=== PATIENT | female | born 1985 | race Two or more races ===

== ENCOUNTER 2016-12-27 07:52 | Inpatient (IN) | payer OTHER ==
--- NOTE | 2016-12-21 18:11 | GHP ---
[f rep st] PREOP HISTORY AND PHYSICAL PLANNED PROCEDURE: Attempt external cephalic version and, if failed, primary low transverse section for breech presentation. INDICATIONS: The patient is a 31-year-old, 3, para 1-0-1-1, who will be 37+ weeks' gestation. She has been monitored for intrauterine growth restriction, and the most recent estimated weight was 4th percentile, which was discovered on 12/17/2016. Baby was also noted to be in the breech presentation. Maternal Medicine has recommended that she deliver between 37 and 39 weeks' gestation. Because the baby is in the breech presentation, we have discussed attempting external cephalic version versus just proceeding with a primary low transverse section. Patient has been properly counseled on both options. She is considering proceeding with external cephalic version and will let us know day of surgery if we are just proceeding with section or attempting external cephalic version. Risk and benefits have been extensively reviewed with the patient. The patient has been properly consented. The patient transferred to [facility] at 30 weeks' gestation. She initially did care while in [facility]. MEDICAL HISTORY: History of hypothyroidism. MEDICATIONS: vitamins and DHA. SURGICAL HISTORY: None. ALLERGIES: No known drug allergies. SOCIAL HISTORY: Patient is . 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 FAMILY MEDICAL HISTORY: Noncontributory. BOOK REPAIRER HISTORY: Menarche age 14. The patient had been before conceiving, so she only had 1 period after she discontinued . She is a 3, para 1-0-1-1. In 2014, she had a spontaneous at 8 weeks. In 2016, she had a spontaneous vaginal delivery of a 5 pounds 7 ounces male at 38 weeks' gestation. She was induced for intrauterine growth restriction. She had a rapid labor. Current has been complicated with intrauterine growth restriction, which was diagnosed in the 2nd trimester with estimated weight at the 3rd percentile at 30 weeks. The patient denies any history of any abnormal Pap smears or sexually transmitted diseases. REVIEW OF SYSTEMS: A 10-point review of systems is negative. She states positive movement. No loss of fluid. No vaginal bleeding. She denies any headache or changes in vision. PHYSICAL EXAMINATION: VITAL SIGNS: Stable. GENERAL APPEARANCE: Alert and oriented x3. PSYCH: She has appropriate affect. MUSCULOSKELETAL: Grossly intact. NEURO: Grossly intact. NECK: Mobile and supple. HEART: Rate is regular, regular. LUNGS: Clear to auscultation bilaterally. ABDOMEN: Gravid , nondistended, nontender. EXTREMITIES: Reveal no calf tenderness or edema. PELVIC: Deferred for infant in the breech presentation. LABORATORY DATA: The patient's labs: Blood type A positive. Antibody screen negative. Rubella immune. GBS negative. HBsAg negative. HIV negative. Her 50 g glucose is 66. She had a negative Verifi. ASSESSMENT/PLAN: A 31-year-old, 3, para 1-0-1-1, who will be 37+ weeks ' gestation with intrauterine growth restriction baby in the breech presentation. She will decide between attempting an external cephalic version and then induction of labor if successful versus just proceeding with a primary low transverse section. Risks and benefits have been extensively reviewed with the patient. The patient has been properly consented. /[id number]/MODL MTDD
--- NOTE | 2016-12-21 18:11 | GHP ---
[f rep st] PREOP HISTORY AND PHYSICAL PLANNED PROCEDURE: Attempt external cephalic version and, if failed, primary low transverse section for breech presentation. INDICATIONS: The patient is a 31-year-old, 3, para 1-0-1-1, who will be 37+ weeks' gestation. She has been monitored for intrauterine growth restriction, and the most recent estimated weight was 4th percentile, which was discovered on 12/17/2016. Baby was also noted to be in the breech presentation. Maternal Medicine has recommended that she deliver between 37 and 39 weeks' gestation. Because the baby is in the breech presentation, we have discussed attempting external cephalic version versus just proceeding with a primary low transverse section. Patient has been properly counseled on both options. She is considering proceeding with external cephalic version and will let us know day of surgery if we are just proceeding with section or attempting external cephalic version. Risk and benefits have been extensively reviewed with the patient. The patient has been properly consented. The patient transferred to [facility] [place] at 30 weeks' gestation. She initially did care while in [facility]. MEDICAL HISTORY: History of hypothyroidism. MEDICATIONS: vitamins and DHA. SURGICAL HISTORY: None. ALLERGIES: No known drug allergies. SOCIAL HISTORY: Patient is . 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 FAMILY MEDICAL HISTORY: Noncontributory. PERMIT REVIEW ASSISTANT HISTORY: Menarche age 14. The patient had been before conceiving, so she only had 1 period after she discontinued . She is a 3, para 1-0-1-1. In 2014, she had a spontaneous at 8 weeks. In 2016, she had a spontaneous vaginal delivery of a 5 pounds 7 ounces male at 38 weeks' gestation. She was induced for intrauterine growth restriction. She had a rapid labor. Current has been complicated with intrauterine growth restriction, which was diagnosed in the 2nd trimester with estimated weight at the 3rd percentile at 30 weeks. The patient denies any history of any abnormal Pap smears or sexually transmitted diseases. REVIEW OF SYSTEMS: A 10-point review of systems is negative. She states positive movement. No loss of fluid. No vaginal bleeding. She denies any headache or changes in vision. PHYSICAL EXAMINATION: VITAL SIGNS: Stable. GENERAL APPEARANCE: Alert and oriented x3. PSYCH: She has appropriate affect. MUSCULOSKELETAL: Grossly intact. NEURO: Grossly intact. NECK: Mobile and supple. HEART: Rate is regular, regular. LUNGS: Clear to auscultation bilaterally. ABDOMEN: Gravid , nondistended, nontender. EXTREMITIES: Reveal no calf tenderness or edema. PELVIC: Deferred for infant in the breech presentation. LABORATORY DATA: The patient's labs: Blood type A positive. Antibody screen negative. Rubella immune. GBS negative. HBsAg negative. HIV negative. Her 50 g glucose is 66. She had a negative Verifi. ASSESSMENT/PLAN: A 31-year-old, 3, para 1-0-1-1, who will be 37+ weeks ' gestation with intrauterine growth restriction baby in the breech presentation. She will decide between attempting an external cephalic version and then induction of labor if successful versus just proceeding with a primary low transverse section. Risks and benefits have been extensively reviewed with the patient. The patient has been properly consented. /[id number]/MODL MTDD
[2016-12-27] MEDS ORDERED: CITRIC ACID/SODIUM CITRATE 30 ML UDCUP PO ONE (08:06)
[2016-12-27] MEDS ORDERED: ceFAZolin 2 GM/DEXTROSE 100 ML IV ONE (08:06)
[2016-12-27] MEDS ORDERED: LR 500 ML IV ONE (08:06)
[2016-12-27] MEDS ORDERED: LR 1,000 ML IV SCH (08:30)
[2016-12-27 08:44] LABS: PLATELET COUNT 233 10^3/uL (150-400)
[2016-12-27] MEDS ORDERED: OXYTOCIN 30 UNIT in LR 500 ML IV SCH (10:45)
--- NOTE | 2016-12-27 12:29 | OBPROG ---
Labor Progress Note Assessment/Plan: Assessment: at 37 4/7 weeks IUGR Plan: pitocin for induction of labor epidural then arom 12/27/16 12:28 Subjective/Intrapartum Course: 12/27/16 12:26 patient presented for primary section for breech presentation at 37 weeks for IUGR. us done to confirm presentation. baby noted to be vertex. status is reassuring. sve 3/70/-2. patient very excited. will start IOL. patient will eat breakfast and we will start pitocin. Objective: 12/27/16 08:36 Patient ABO/Rh A POSITIVE 12/27/16 08:36 - SVE Dilation (cm): 3 Effacement (%): 75 Station: -2 Membranes: Intact - Contraction Pattern Assessment Current Contraction Pattern: Irregular - FHR Assessment [place] FHR (bpm): 150 FHR Pattern Variability: Moderate FHR Category: 1 - AP Antepartum Course: 12/27/16 12:31 hx IUGR with G1. rapid labor with G1. initiated care with [facility]. transfer to care to [facility] at 30 weeks. efw was 15% at 26 weeks. US in clinic at 30 weeks was efw 3%. close surveillance for rest of . EFW at 36 weeks was 4% . [facility] recommended delivery 37- 39 weeks. baby was breech at 37 weeks. discussed ECV vs primary c section. declined ECV. baby found to be cephalic when arrived to L and D for c section so will start induction instead of c section Oxytocin Orders Assessment - Pre-Induction/Augmentation Assessment Gestational Age: 37 week(s) and 4 day(s) ICD10 Worksheet Patient Problems: Problems Problem Status Onset IUGR (intrauterine growth restriction) Acute
--- NOTE | 2016-12-27 12:29 | OBPROG ---
Labor Progress Note Assessment/Plan: Assessment: at 37 4/7 weeks IUGR Plan: pitocin for induction of labor epidural then arom 12/27/16 12:28 Subjective/Intrapartum Course: 12/27/16 12:26 patient presented for primary section for breech presentation at 37 weeks for IUGR. us done to confirm presentation. baby noted to be vertex. status is reassuring. sve 3/70/-2. patient very excited. will start IOL. patient will eat breakfast and we will start pitocin. Objective: 12/27/16 08:36 Patient ABO/Rh A POSITIVE 12/27/16 08:36 - SVE Dilation (cm): 3 Effacement (%): 75 Station: -2 Membranes: Intact - Contraction Pattern Assessment Current Contraction Pattern: Irregular - FHR Assessment [place] FHR (bpm): 150 FHR Pattern Variability: Moderate FHR Category: 1 - AP Antepartum Course: 12/27/16 12:31 hx IUGR with G1. rapid labor with G1. initiated care with [facility] [place] [place]. transfer to care to [facility] at 30 weeks. efw was 15% at 26 weeks. US in clinic at 30 weeks was efw 3%. close surveillance for rest of . EFW at 36 weeks was 4% . [facility] recommended delivery 37- 39 weeks. baby was breech at 37 weeks. discussed ECV vs primary c section. declined ECV. baby found to be cephalic when arrived to L and D for c section so will start induction instead of c section Oxytocin Orders Assessment - Pre-Induction/Augmentation Assessment Gestational Age: 37 week(s) and 4 day(s) ICD10 Worksheet Patient Problems: Problems Problem Status Onset IUGR (intrauterine growth restriction) Acute
--- NOTE | 2016-12-27 12:29 | OBPROG ---
Labor Progress Note Assessment/Plan: Assessment: at 37 4/7 weeks IUGR Plan: pitocin for induction of labor epidural then arom 12/27/16 12:28 Subjective/Intrapartum Course: 12/27/16 12:26 patient presented for primary section for breech presentation at 37 weeks for IUGR. us done to confirm presentation. baby noted to be vertex. status is reassuring. sve 3/70/-2. patient very excited. will start IOL. patient will eat breakfast and we will start pitocin. Objective: 12/27/16 08:36 Patient ABO/Rh A POSITIVE 12/27/16 08:36 - SVE Dilation (cm): 3 Effacement (%): 75 Station: -2 Membranes: Intact - Contraction Pattern Assessment Current Contraction Pattern: Irregular - FHR Assessment [place] FHR (bpm): 150 FHR Pattern Variability: Moderate FHR Category: 1 - AP Antepartum Course: 12/27/16 12:31 hx IUGR with G1. rapid labor with G1. initiated care with [facility] [place] [facility]. transfer to care to [facility] at 30 weeks. efw was 15% at 26 weeks. US in clinic at 30 weeks was efw 3%. close surveillance for rest of . EFW at 36 weeks was 4% . [facility] recommended delivery 37- 39 weeks. baby was breech at 37 weeks. discussed ECV vs primary c section. declined ECV. baby found to be cephalic when arrived to L and D for c section so will start induction instead of c section Oxytocin Orders Assessment - Pre-Induction/Augmentation Assessment Gestational Age: 37 week(s) and 4 day(s) ICD10 Worksheet Patient Problems: Problems Problem Status Onset IUGR (intrauterine growth restriction) Acute
[2016-12-27] MEDS ORDERED: PHENYLEPHRINE HCL 100 MCG/ML SYR ONE (14:10)
[2016-12-27] MEDS ORDERED: BUPIVACAINE 0.25% 30 ML SDV ONE (14:10)
[2016-12-27] MEDS ORDERED: fentaNYL 2MCG/ML/BUP 0.1% RTU 100 ML BAG EP ONE (14:10)
[2016-12-27] MEDS ORDERED: fentaNYL 100 MCG/2 ML INJ ONE (14:11)
--- NOTE | 2016-12-27 15:27 | OBPROG ---
Labor Progress Note Assessment/Plan: Assessment: at 37 4/7 weeks IUGR Plan: pitocin for induction of labor epidural then arom 12/27/16 12:28 Subjective/Intrapartum Course: 12/27/16 12:26 patient presented for primary section for breech presentation at 37 weeks for IUGR. us done to confirm presentation. baby noted to be vertex. status is reassuring. sve 3/70/-2. patient very excited. will start IOL. patient will eat breakfast and we will start pitocin. 12/27/16 15:25 patient comfortable with epidural. AROM. large amount of clear fluid. status reassuring. Objective: 12/27/16 08:36 Patient ABO/Rh A POSITIVE 12/27/16 08:36 - SVE Dilation (cm): 3 Effacement (%): 75 Station: 0 Membranes: AROM Amniotic Fluid Color: Clear - Contraction Pattern Assessment Current Contraction Pattern: Irregular - FHR Assessment [place] FHR (bpm): 130 FHR Pattern Variability: Moderate FHR Category: 1 - Procedures Non-surgical Procedures: Amniotomy - AP Antepartum Course: 12/27/16 12:31 hx IUGR with G1. rapid labor with G1. initiated care with [facility]. transfer to care to [facility] at 30 weeks. efw was 15% at 26 weeks. US in clinic at 30 weeks was efw 3%. close surveillance for rest of . EFW at 36 weeks was 4% . [facility] recommended delivery 37- 39 weeks. baby was breech at 37 weeks. discussed ECV vs primary c section. declined ECV. baby found to be cephalic when arrived to L and D for c section so will start induction instead of c section Oxytocin Orders Assessment - Pre-Induction/Augmentation Assessment Gestational Age: 37 week(s) and 4 day(s) ICD10 Worksheet Patient Problems: Problems Problem Status Onset IUGR (intrauterine growth restriction) Acute
--- NOTE | 2016-12-27 15:27 | OBPROG ---
Labor Progress Note Assessment/Plan: Assessment: at 37 4/7 weeks IUGR Plan: pitocin for induction of labor epidural then arom 12/27/16 12:28 Subjective/Intrapartum Course: 12/27/16 12:26 patient presented for primary section for breech presentation at 37 weeks for IUGR. us done to confirm presentation. baby noted to be vertex. status is reassuring. sve 3/70/-2. patient very excited. will start IOL. patient will eat breakfast and we will start pitocin. 12/27/16 15:25 patient comfortable with epidural. AROM. large amount of clear fluid. status reassuring. Objective: 12/27/16 08:36 Patient ABO/Rh A POSITIVE 12/27/16 08:36 - SVE Dilation (cm): 3 Effacement (%): 75 Station: 0 Membranes: AROM Amniotic Fluid Color: Clear - Contraction Pattern Assessment Current Contraction Pattern: Irregular - FHR Assessment [place] FHR (bpm): 130 FHR Pattern Variability: Moderate FHR Category: 1 - Procedures Non-surgical Procedures: Amniotomy - AP Antepartum Course: 12/27/16 12:31 hx IUGR with G1. rapid labor with G1. initiated care with [facility]. transfer to care to [facility] at 30 weeks. efw was 15% at 26 weeks. US in clinic at 30 weeks was efw 3%. close surveillance for rest of . EFW at 36 weeks was 4% . [facility] recommended delivery 37- 39 weeks. baby was breech at 37 weeks. discussed ECV vs primary c section. declined ECV. baby found to be cephalic when arrived to L and D for c section so will start induction instead of c section Oxytocin Orders Assessment - Pre-Induction/Augmentation Assessment Gestational Age: 37 week(s) and 4 day(s) ICD10 Worksheet Patient Problems: Problems Problem Status Onset IUGR (intrauterine growth restriction) Acute
--- NOTE | 2016-12-27 15:27 | OBPROG ---
Labor Progress Note Assessment/Plan: Assessment: at 37 4/7 weeks IUGR Plan: pitocin for induction of labor epidural then arom 12/27/16 12:28 Subjective/Intrapartum Course: 12/27/16 12:26 patient presented for primary section for breech presentation at 37 weeks for IUGR. us done to confirm presentation. baby noted to be vertex. status is reassuring. sve 3/70/-2. patient very excited. will start IOL. patient will eat breakfast and we will start pitocin. 12/27/16 15:25 patient comfortable with epidural. AROM. large amount of clear fluid. status reassuring. Objective: 12/27/16 08:36 Patient ABO/Rh A POSITIVE 12/27/16 08:36 - SVE Dilation (cm): 3 Effacement (%): 75 Station: 0 Membranes: AROM Amniotic Fluid Color: Clear - Contraction Pattern Assessment Current Contraction Pattern: Irregular - FHR Assessment [place] FHR (bpm): 130 FHR Pattern Variability: Moderate FHR Category: 1 - Procedures Non-surgical Procedures: Amniotomy - AP Antepartum Course: 12/27/16 12:31 hx IUGR with G1. rapid labor with G1. initiated care with [facility] [place]. transfer to care to [facility] at 30 weeks. efw was 15% at 26 weeks. US in clinic at 30 weeks was efw 3%. close surveillance for rest of . EFW at 36 weeks was 4% . [facility] recommended delivery 37- 39 weeks. baby was breech at 37 weeks. discussed ECV vs primary c section. declined ECV. baby found to be cephalic when arrived to L and D for c section so will start induction instead of c section Oxytocin Orders Assessment - Pre-Induction/Augmentation Assessment Gestational Age: 37 week(s) and 4 day(s) ICD10 Worksheet Patient Problems: Problems Problem Status Onset IUGR (intrauterine growth restriction) Acute
--- NOTE | 2016-12-27 15:35 | PREANESOB ---
Obstetric Pre-Anesthesia Info - General Info Proposed Procedure: Labor and delivery with pitocin. : 3 Para: 1 FRANCINE: 01/13/17 Gestational Age: 37 week(s) and 4 day(s) - Info Status: Full Term Monitors: External FHR Baseline (bpm): 150 FHR Pattern: Reassuring - Labor Status Cervical Dilation per last OB SVE: 3 Station per last OB SVE: 0 Amniotic Fluid Color: Clear Pitocin: In Use Indications for Labor Analgesia: Induction of Labor, Pain Control Labor Epidural: Proposed (IUGR.) Anesthesia ROS: Prior labor epidural. Allergies/Adverse Reactions: Allergy/AdvReac Type Severity Reaction Status Date / Time No Known Allergies Allergy Unverified 12/27/16 08:06 Home Medications: Medication Instructions Recorded Iron/Docusate Sodium 1 each PO 12/27/16 [Juan Pablo-Sequels 50 mg] Vit27&Calcium/Iron/FA 1 each PO 12/27/16 [] Visit Medications: Generic Name Dose Route Start Last Admin Trade Name Freq PRN Reason Stop Dose Admin Lactated Ringer's 1,000 mls @ 125 mls/hr 12/27/16 08:30 Lr IV 06/25/17 08:29 CONT MINA Oxytocin 30 unit/ Lactated 503 mls @ 0 mls/hr 12/27/16 10:45 12/27/16 13:16 Ringer's IV 06/25/17 10:44 503 mls CONT MINA Administration Protocol Per Protocol Discontinued Medications Generic Name Dose Route Start Last Admin Trade Name Freq PRN Reason Stop Dose Admin Bupivacaine HCl Confirm 12/27/16 14:10 Sensorcaine 0.25% Sdv Administered 12/27/16 14:11 Dose 30 ml .ROUTE .STK-MED ONE Citric Acid/Sodium Citrate 30 ml 12/27/16 08:06 Bicitra PO 12/27/16 08:07 ONCALL ONE Fentanyl Confirm 12/27/16 14:11 Sublimaze Administered 12/27/16 14:12 Dose 100 mcg .ROUTE .STK-MED ONE Fentanyl/Bupivacaine HCl Confirm 12/27/16 14:10 Fentanyl/Bupivacaine/Ns 2 Mcg/Ml 0.1% (Premix Administered 12/27/16 14:11 Dose 100 ml EP .STK-MED ONE Cefazolin Sodium/Dextrose 100 mls @ 200 mls/hr 12/27/16 08:06 Ancef 2 Gm (Premix) IV 12/27/16 08:35 ONCALL ONE Protocol Lactated Ringer's 500 mls @ 0 mls/hr 12/27/16 08:06 Lr IV 12/27/16 08:07 ONCE ONE As Directed Phenylephrine HCl Confirm 12/27/16 14:10 Neosynephrine Administered 12/27/16 14:11 Dose 1,000 mcg .ROUTE .STK-MED ONE - Anesthesia History Response to Local Anesthetics: Normal Anesthesia & Operative History: No Prior Problems Family Anesthesia History: Negative - Social History Substance Use/Abuse: Denies - Vital Signs Blood Pressure: 119/72 Heart Rate: 100 Height/Weight (Nursing): Height 167 cm Weight 62 kg - Focused Exam Neck exam: FROM Mallampati Score: Class 1 Mouth exam: normal dental/mouth exam Pulmonary: no respiratory distress Cardiovascular: regular rate and rhythym Labs: 12/27/16 08:36 Patient ABO/Rh A POSITIVE 12/27/16 08:36 - Plan Anesthetic Plan: ENRIKE Consent Signed and on Chart: Yes Patient/Guardian Understands and Agrees to Plan: Yes Urgent/Emergent Case: Andressa schwartz completed preop but documented later for safe timely pt care
[2016-12-27] MEDS ORDERED: ONDANSETRON 4 MG/2 ML VIAL IVP PRN (15:37)
[2016-12-27] MEDS ORDERED: PHENYLEPHRINE HCL 100 MCG/ML SYR IVP PRN (15:37)
--- NOTE | 2016-12-27 15:37 | POSTANESTH ---
Post Anesthetic Evaluation Cardiovascular Status: Normal, Stable, Similar to Pre-Op Cond Respiratory Status: Normal, Stable, Similar to Pre-op Cond. Level of Consciousness/Mental Status: Can Participate in Eval, Alert and Oriented Pain Control: Adequate, Prn Tx Ordered Nausea/Vomiting Control: Adequate, Prn Tx Ordered Complications Possibly Related to Anesthesia: None Noted
[2016-12-27] MEDS ORDERED: fentaNYL 2MCG/ML/BUP 0.1% RTU 100 ML EP SCH (16:00)
[2016-12-27] MEDS ORDERED: LR 500 ML IV SCH (16:00)
--- NOTE | 2016-12-27 18:51 | OBPROG ---
Labor Progress Note Assessment/Plan: Assessment: at 37 4/7 weeks IUGR Plan: pitocin for induction of labor epidural then arom 12/27/16 12:28 Subjective/Intrapartum Course: 12/27/16 12:26 patient presented for primary section for breech presentation at 37 weeks for IUGR. us done to confirm presentation. baby noted to be vertex. status is reassuring. sve 3/70/-2. patient very excited. will start IOL. patient will eat breakfast and we will start pitocin. 12/27/16 15:25 patient comfortable with epidural. AROM. large amount of clear fluid. status reassuring. 12/27/16 18:49 patient comfortable with epidural. having variable decels. IUPC and fecg placed. positioned into hands and knees. pitocin is at 12 mu. overall status is reassuring. Objective: 12/27/16 08:36 Patient ABO/Rh A POSITIVE 12/27/16 08:36 Temp Pulse Resp BP Pulse Ox 100 119/72 12/27/16 15:37 12/27/16 15:37 - SVE Dilation (cm): 6, 7 Effacement (%): 90 Station: 0 Membranes: AROM Amniotic Fluid Color: Clear - Contraction Pattern Assessment Current Contraction Pattern: Irregular - FHR Assessment [place] FHR (bpm): 140 FHR Pattern Variability: Moderate FHR Category: 2 - Procedures Non-surgical Procedures: Amniotomy - AP Antepartum Course: 12/27/16 12:31 hx IUGR with G1. rapid labor with G1. initiated care with [facility]. transfer to care to [facility] at 30 weeks. efw was 15% at 26 weeks. US in clinic at 30 weeks was efw 3%. close surveillance for rest of . EFW at 36 weeks was 4% . [facility] recommended delivery 37- 39 weeks. baby was breech at 37 weeks. discussed ECV vs primary c section. declined ECV. baby found to be cephalic when arrived to L and D for c section so will start induction instead of c section Oxytocin Orders Assessment - Pre-Induction/Augmentation Assessment Gestational Age: 37 week(s) and 4 day(s) ICD10 Worksheet Patient Problems: Problems Problem Status Onset IUGR (intrauterine growth restriction) Acute
--- NOTE | 2016-12-27 18:51 | OBPROG ---
Labor Progress Note Assessment/Plan: Assessment: at 37 4/7 weeks IUGR Plan: pitocin for induction of labor epidural then arom 12/27/16 12:28 Subjective/Intrapartum Course: 12/27/16 12:26 patient presented for primary section for breech presentation at 37 weeks for IUGR. us done to confirm presentation. baby noted to be vertex. status is reassuring. sve 3/70/-2. patient very excited. will start IOL. patient will eat breakfast and we will start pitocin. 12/27/16 15:25 patient comfortable with epidural. AROM. large amount of clear fluid. status reassuring. 12/27/16 18:49 patient comfortable with epidural. having variable decels. IUPC and fecg placed. positioned into hands and knees. pitocin is at 12 mu. overall status is reassuring. Objective: 12/27/16 08:36 Patient ABO/Rh A POSITIVE 12/27/16 08:36 Temp Pulse Resp BP Pulse Ox 100 119/72 12/27/16 15:37 12/27/16 15:37 - SVE Dilation (cm): 6, 7 Effacement (%): 90 Station: 0 Membranes: AROM Amniotic Fluid Color: Clear - Contraction Pattern Assessment Current Contraction Pattern: Irregular - FHR Assessment [place] FHR (bpm): 140 FHR Pattern Variability: Moderate FHR Category: 2 - Procedures Non-surgical Procedures: Amniotomy - AP Antepartum Course: 12/27/16 12:31 hx IUGR with G1. rapid labor with G1. initiated care with [facility] [place]. transfer to care to [facility] at 30 weeks. efw was 15% at 26 weeks. US in clinic at 30 weeks was efw 3%. close surveillance for rest of . EFW at 36 weeks was 4% . [facility] recommended delivery 37- 39 weeks. baby was breech at 37 weeks. discussed ECV vs primary c section. declined ECV. baby found to be cephalic when arrived to L and D for c section so will start induction instead of c section Oxytocin Orders Assessment - Pre-Induction/Augmentation Assessment Gestational Age: 37 week(s) and 4 day(s) ICD10 Worksheet Patient Problems: Problems Problem Status Onset IUGR (intrauterine growth restriction) Acute
--- NOTE | 2016-12-27 18:51 | OBPROG ---
Labor Progress Note Assessment/Plan: Assessment: at 37 4/7 weeks IUGR Plan: pitocin for induction of labor epidural then arom 12/27/16 12:28 Subjective/Intrapartum Course: 12/27/16 12:26 patient presented for primary section for breech presentation at 37 weeks for IUGR. us done to confirm presentation. baby noted to be vertex. status is reassuring. sve 3/70/-2. patient very excited. will start IOL. patient will eat breakfast and we will start pitocin. 12/27/16 15:25 patient comfortable with epidural. AROM. large amount of clear fluid. status reassuring. 12/27/16 18:49 patient comfortable with epidural. having variable decels. IUPC and fecg placed. positioned into hands and knees. pitocin is at 12 mu. overall status is reassuring. Objective: 12/27/16 08:36 Patient ABO/Rh A POSITIVE 12/27/16 08:36 Temp Pulse Resp BP Pulse Ox 100 119/72 12/27/16 15:37 12/27/16 15:37 - SVE Dilation (cm): 6, 7 Effacement (%): 90 Station: 0 Membranes: AROM Amniotic Fluid Color: Clear - Contraction Pattern Assessment Current Contraction Pattern: Irregular - FHR Assessment [place] FHR (bpm): 140 FHR Pattern Variability: Moderate FHR Category: 2 - Procedures Non-surgical Procedures: Amniotomy - AP Antepartum Course: 12/27/16 12:31 hx IUGR with G1. rapid labor with G1. initiated care with [facility] [place]. transfer to care to [facility] at 30 weeks. efw was 15% at 26 weeks. US in clinic at 30 weeks was efw 3%. close surveillance for rest of . EFW at 36 weeks was 4% . [facility] recommended delivery 37- 39 weeks. baby was breech at 37 weeks. discussed ECV vs primary c section. declined ECV. baby found to be cephalic when arrived to L and D for c section so will start induction instead of c section Oxytocin Orders Assessment - Pre-Induction/Augmentation Assessment Gestational Age: 37 week(s) and 4 day(s) ICD10 Worksheet Patient Problems: Problems Problem Status Onset IUGR (intrauterine growth restriction) Acute
[2016-12-27] MEDS ORDERED: TERBUTALINE SULFATE 1 MG/ML VIAL ONE (19:04)
[2016-12-27] MEDS ORDERED: LIDOCAINE 1% 300 MG/30 ML SDV ONE (19:04)
[2016-12-27] MEDS ORDERED: OLIVE OIL 118 ML BTL ONE (19:04)
[2016-12-27] MEDS ORDERED: OXYTOCIN 10 UNIT/ML VIAL ONE (19:04)
[2016-12-27] MEDS ORDERED: MISOPROSTOL 200 MCG TAB ONE (19:04)
[2016-12-27] MEDS ORDERED: AMMONIA AROMATIC 1 EACH AMP IH ONE (19:04)
[2016-12-27] MEDS ORDERED: SIMETHICONE 80 MG TAB CHEW PO PRN (20:00)
[2016-12-27] MEDS ORDERED: HYDROCODONE/APAP 5/325 TAB PO PRN (20:00)
[2016-12-27] MEDS ORDERED: ACETAMINOPHEN 325 MG TAB PO PRN (20:00)
[2016-12-27] MEDS ORDERED: HYDROCORTISONE 0.5% CREAM TP PRN (20:00)
--- NOTE | 2016-12-27 20:05 | OBDEL ---
Info Type: Vaginal Presentation at Delivery: Vertex L&D Analgesia/Anesthesia Type: Epidural GBS+: No Intrapartum Medications: Generic Name Dose Route Start Last Admin Trade Name Evangelista PRN Reason Stop Dose Admin Oxytocin 30 unit/ Lactated 503 mls @ 0 mls/hr 12/27/16 10:45 12/27/16 13:16 Ringer's IV 06/25/17 10:44 503 mls CONT MINA Administration Protocol Per Protocol - Hospital Course Intrapartum: 12/27/16 12:26 patient presented for primary section for breech presentation at 37 weeks for IUGR. us done to confirm presentation. baby noted to be vertex. status is reassuring. sve 370/-2. patient very excited. will start IOL. patient will eat breakfast and we will start pitocin. 12/27/16 20:02 patient got epidural. AROM. severe variables. rapid progress to complete. Vaginal Delivery - Delivery Provider Delivery Physician/CNM: Leyla Smalls - Labor and Delivery Onset of Contractions Date: 12/27/16 Onset of Contractions Time: 15:24 Onset of Contractions Type: Induced Rupture of Membranes Date: 12/27/16 Rupture of Membranes Time: 15:24 Rupture of Membranes Type: Artificial Amniotic Fluid Color: Clear Dilation Complete Date: 12/27/16 Dilation Complete Time: 18:53 Placenta Delivery Date: 12/27/16 Placenta Delivery Time: 19:09 Total Hours of Labor: 3 Non-surgical Procedures: Amniotomy Laceration: 1st Degree Repair: 3-0 Vaginal Sponge Count Correct: Yes Vaginal Needle Count Correct: Yes Vaginal Sweep Performed: Yes EBL: 200 Delivery Comment: rapid progress to complete. severe variable decelerations. pushed well. - Medications Labor Augmentation/Induction Methods Used: Pitocin Labor Augmentation/Induction Indication: IUGR Data [place] Delivery Date: 12/27/16 Delivery Time: 19:04 FRANCINE: [birth year] Gestational Age: 37 week(s) and 4 day(s) Sex of Infant: Female Score (1 Min): 8 Score (5 Min): 9 ICD10 Worksheet Patient Problems: Problems Problem Status Onset IUGR (intrauterine growth restriction) Acute
[2016-12-27] MEDS ORDERED: IBUPROFEN 600 MG TAB PO ONE (20:17)
[2016-12-27] MEDS: IBUPROFEN 600 MG TAB PO PRN (20:21)
[2016-12-28] MEDS: IBUPROFEN 600 MG TAB PO PRN ×4 (02:35→21:27)
[2016-12-28] MEDS: DOCUSATE SODIUM 100 MG CAP PO PRN (08:16)
--- NOTE | 2016-12-28 15:49 | OBPP ---
Progress Note Assessment/Plan: Assessment: PPD 1 s/p - rapid labor Plan: routine care, mild anemia at 33.8 12/28/16 15:46 Subjective/ Course: 12/28/16 15:47 pt doing well. Is so happy with how things went yesterday. Baby has been making good attempts with latching. Pranay reg diet - no nausea. Bleeding is light. urinating fine. Objective: 12/27/16 08:36 Patient ABO/Rh A POSITIVE 12/27/16 08:36 Temp Pulse Resp BP Pulse Ox 36.6 C 84 17 98/64 L 95 12/28/16 08:23 12/28/16 08:23 12/28/16 08:23 12/28/16 08:23 12/28/16 08:23 Uterine Position/Fundal Height: Umbilicus -2 Uterine Tone: Firm Physical Exam - Physical Exam Abdomen: non-tender, soft Extremities: non-tender, pedal edema (minimal) Skin: normal color, warm/dry Neuro/Psych: alert, normal mood/affect
[2016-12-28 20:56] VITALS: O2SAT 94
[2016-12-29] MEDS: IBUPROFEN 600 MG TAB PO PRN ×2 (04:10→11:03)
[2016-12-29 08:54] VITALS: BP 104/65; PULSE 80; RESP 18; TEMP 97.3
[2016-12-29] MEDS ORDERED: IRON POLYSAC/IRON HEME 28 MG TAB PO SCH (09:00)
[2016-12-29] MEDS: DOCUSATE SODIUM 100 MG CAP PO PRN (09:04)
[2016-12-29] MEDS ORDERED: EPSOM SALT 454 GM TP ONE (09:56)
--- NOTE | 2016-12-29 09:59 | OBPP ---
Progress Note Assessment/Plan: Assessment: at 37 4/7 weeks IUGR ppd# 2 s/p breast feeding Plan: routine post care and discharge instructions 12/29/16 09:57 Subjective/ Course: 12/28/16 15:47 pt doing well. Is so happy with how things went yesterday. Baby has been making good attempts with latching. Pranay reg diet - no nausea. Bleeding is light. urinating fine. 12/29/16 09:57 patient is doing well. pain is well controlled. normal lochia. denies headache and changes in vision. ambulating. passing gas. ready to go home. Objective: 12/27/16 08:36 Patient ABO/Rh A POSITIVE 12/27/16 08:36 Temp Pulse Resp BP Pulse Ox 36.3 C 80 18 104/65 94 12/29/16 08:53 12/29/16 08:53 12/29/16 08:53 12/29/16 08:53 12/28/16 20:00 Uterine Position/Fundal Height: Umbilicus -2 Uterine Tone: Firm Physical Exam - Physical Exam Neck: non-tender, full range of motion, supple Respiratory: chest non-tender, lungs clear, normal breath sounds Cardiac/Chest: normal peripheral pulses, regular rate, rhythm Abdomen: normal bowel sounds, non-tender Extremities: normal range of motion, non-tender, normal inspection, normal capillary refill Skin: normal color, warm/dry Neuro/Psych: no motor/sensory deficits, alert, normal mood/affect, oriented x 3
--- NOTE | 2016-12-29 10:02 | OBGCSDC ---
General Delivery Information - General Info : 3 Para: 2 Abortions: 1 Type: Vaginal L&D Analgesia/Anesthesia Type: Epidural Admission Date: 12/27/16 Labs: Patient ABO/Rh A POSITIVE 12/27/16 08:36 Hct 33.8 % (38.0-47.0) L 12/27/16 08:36 - Hospital Course Antepartum: 12/27/16 12:31 hx IUGR with G1. rapid labor with G1. [place] [facility] [place] transfer to care to [facility] at 30 weeks. efw was 15% at 26 weeks. US in clinic at 30 weeks was efw 3%. close surveillance for rest of . EFW at 36 weeks was 4% . [facility] recommended delivery 37- 39 weeks. baby was breech at 37 weeks. discussed ECV vs primary c section. declined ECV. baby found to be cephalic when arrived to L and D for c section so will start induction instead of c section Intrapartum: 12/27/16 12:26 patient presented for primary section for breech presentation at 37 weeks for IUGR. us done to confirm presentation. baby noted to be vertex. status is reassuring. sve 3/70/-2. patient very excited. will start IOL. patient will eat breakfast and we will start pitocin. 12/27/16 20:02 patient got epidural. AROM. severe variables. rapid progress to complete. : 12/28/16 15:47 pt doing well. Is so happy with how things went yesterday. Baby has been making good attempts with latching. Pranay reg diet - no nausea. Bleeding is light. urinating fine. 12/29/16 09:57 patient is doing well. pain is well controlled. normal lochia. denies headache and changes in vision. ambulating. passing gas. ready to go home. Vaginal - Delivery Provider Delivery Physician/CNM: Leyla Smalls - Diagnosis Labor: Induced Rupture of Membranes Type: Artificial Amniotic Fluid Color: Clear Laceration: 1st Degree Repair: 3-0 - Procedures Non-surgical Procedures: Amniotomy - Delivery Non-surgical Procedures: Amniotomy EBL: 200 [place] Data [place] Delivery Date: 12/27/16 Delivery Time: 10:53 FRANCINE: [birth year]17 Gestational Age: 37 week(s) and 6 day(s) Sex of Infant: Female [place] Weight (gm): 2296 g Score (1 Min): 8 Score (5 Min): 9 Discharge Information - Discharge Information Condition: Good Instruction/Follow Up: Four Weeks (post mood check ), Six Weeks (post visit)
--- NOTE | 2016-12-29 10:02 | OBGCSDC ---
General Delivery Information - General Info : 3 Para: 2 Abortions: 1 Type: Vaginal L&D Analgesia/Anesthesia Type: Epidural Admission Date: 12/27/16 Labs: Patient ABO/Rh A POSITIVE 12/27/16 08:36 Hct 33.8 % (38.0-47.0) L 12/27/16 08:36 - Hospital Course Antepartum: 12/27/16 12:31 hx IUGR with G1. rapid labor with G1. initiated care with [facility] [place] transfer to care to [facility] at 30 weeks. efw was 15% at 26 weeks. US in clinic at 30 weeks was efw 3%. close surveillance for rest of . EFW at 36 weeks was 4% . [facility] recommended delivery 37- 39 weeks. baby was breech at 37 weeks. discussed ECV vs primary c section. declined ECV. baby found to be cephalic when arrived to L and D for c section so will start induction instead of c section Intrapartum: 12/27/16 12:26 patient presented for primary section for breech presentation at 37 weeks for IUGR. us done to confirm presentation. baby noted to be vertex. status is reassuring. sve 3/70/-2. patient very excited. will start IOL. patient will eat breakfast and we will start pitocin. 12/27/16 20:02 patient got epidural. AROM. severe variables. rapid progress to complete. : 12/28/16 15:47 pt doing well. Is so happy with how things went yesterday. Baby has been making good attempts with latching. Pranay reg diet - no nausea. Bleeding is light. urinating fine. 12/29/16 09:57 patient is doing well. pain is well controlled. normal lochia. denies headache and changes in vision. ambulating. passing gas. ready to go home. Vaginal - Delivery Provider Delivery Physician/CNM: Leyla Smalls - Diagnosis Labor: Induced Rupture of Membranes Type: Artificial Amniotic Fluid Color: Clear Laceration: 1st Degree Repair: 3-0 - Procedures Non-surgical Procedures: Amniotomy - Delivery Non-surgical Procedures: Amniotomy EBL: 200 [place] Data [place] Delivery Date: 12/27/16 Delivery Time: 10:53 FRANCINE: [birth year]17 Gestational Age: 37 week(s) and 6 day(s) Sex of Infant: Female [place] Weight (gm): 2296 g Score (1 Min): 8 Score (5 Min): 9 Discharge Information - Discharge Information Condition: Good Instruction/Follow Up: Four Weeks (post mood check ), Six Weeks (post visit)
--- NOTE | 2016-12-29 10:02 | OBGCSDC ---
General Delivery Information - General Info : 3 Para: 2 Abortions: 1 Type: Vaginal L&D Analgesia/Anesthesia Type: Epidural Admission Date: 12/27/16 Labs: Patient ABO/Rh A POSITIVE 12/27/16 08:36 Hct 33.8 % (38.0-47.0) L 12/27/16 08:36 - Hospital Course Antepartum: 12/27/16 12:31 hx IUGR with G1. rapid labor with G1. initiated care with [facility] [place]. transfer to care to [facility] at 30 weeks. efw was 15% at 26 weeks. US in clinic at 30 weeks was efw 3%. close surveillance for rest of . EFW at 36 weeks was 4% . [facility] recommended delivery 37- 39 weeks. baby was breech at 37 weeks. discussed ECV vs primary c section. declined ECV. baby found to be cephalic when arrived to L and D for c section so will start induction instead of c section Intrapartum: 12/27/16 12:26 patient presented for primary section for breech presentation at 37 weeks for IUGR. us done to confirm presentation. baby noted to be vertex. status is reassuring. sve 3/70/-2. patient very excited. will start IOL. patient will eat breakfast and we will start pitocin. 12/27/16 20:02 patient got epidural. AROM. severe variables. rapid progress to complete. : 12/28/16 15:47 pt doing well. Is so happy with how things went yesterday. Baby has been making good attempts with latching. Pranay reg diet - no nausea. Bleeding is light. urinating fine. 12/29/16 09:57 patient is doing well. pain is well controlled. normal lochia. denies headache and changes in vision. ambulating. passing gas. ready to go home. Vaginal - Delivery Provider Delivery Physician/CNM: Leyla Smalls - Diagnosis Labor: Induced Rupture of Membranes Type: Artificial Amniotic Fluid Color: Clear Laceration: 1st Degree Repair: 3-0 - Procedures Non-surgical Procedures: Amniotomy - Delivery Non-surgical Procedures: Amniotomy EBL: 200 [place] Data [place] Delivery Date: 12/27/16 Delivery Time: 10:53 FRANCINE: [birth year]/17 Gestational Age: 37 week(s) and 6 day(s) Sex of Infant: Female [place] Weight (gm): 2296 g Score (1 Min): 8 Score (5 Min): 9 Discharge Information - Discharge Information Condition: Good Instruction/Follow Up: Four Weeks (post mood check ), Six Weeks (post visit)
== END 2016-12-29 12:40 | disposition home or self-care (01) | DRG 766 ==
LOC: FLD 07:52 → FOB 21:15
PROVIDERS: ADMIT Obstetrics & Gynecology; ATTEND Obstetrics & Gynecology
DX: O36.5930 Maternal care for other known or suspected poor fetal growth, third trimester, not applicable or unspecified (principal); Z37.0 Single live birth; Z3A.37 37 weeks gestation of pregnancy; O70.0 First degree perineal laceration during delivery
CPT/HCPCS: J0690; J2370; J3010; J3105